=== PATIENT | female | born 1985 | race Two or more races ===

== ENCOUNTER 2023-12-04 08:00 | Outpatient (CLI) | payer OTHER ==
[~2023-12-04] VITALS: Ht 152.4 cm; Wt 72.1 kg
== END 2023-12-04 08:01 | disposition home or self-care (01) ==
LOC: LAB 08:00 → SURH 12-11 07:00 → EDSTATUS 12-11 10:00
PROVIDERS: ATTEND Colon & Rectal Surgery
DX: K57.32 Diverticulitis of large intestine without perforation or abscess without bleeding (principal); K92.1 Melena; Z86.010 Personal history of colon polyps

== ENCOUNTER 2024-01-30 09:40 | Inpatient (IN) | payer OTHER ==
[~2024-01-30] VITALS: Ht 152.4 cm; Wt 69.9 kg
[2024-02-05] MEDS ORDERED: CEFTRIAXONE SODIUM 2,000 MG VIAL ONE (07:06)
[2024-02-05] MEDS ORDERED: METRONIDAZOLE/SODIUM CHLORIDE 500 MG/100 ML PIGGYBACK IV ONE ×2 (07:06→12:05)
[2024-02-05] MEDS ORDERED: BUPIVACAINE HCL/MPF 0.5% 30ML VIAL ONE (07:07)
[2024-02-05] MEDS ORDERED: LIDOCAINE HCL 1%/EPINEPHRINE 20ML VIAL IJ ONE (07:07)
[2024-02-05] MEDS ORDERED: METRONIDAZOLE/SODIUM CHLORIDE 500 MG/100 ML PIGGYBACK IV SCH (11:20)
[2024-02-05] MEDS ORDERED: CIPROFLOXACIN IN 5 % DEXTROSE 400 MG/200 ML PIGGYBAG IV SCH (11:20)
[2024-02-05] MEDS ORDERED: CELECOXIB 200 MG CAPSULE PO SCH ×2 (11:21→21:00)
[2024-02-05] MEDS ORDERED: POLYETHYLENE GLYCOL 3350 17 GM BLIST.PACK PO SCH (11:21)
[2024-02-05] MEDS ORDERED: ACETAMINOPHEN 500 MG GEL..CAP PO SCH (11:21)
[2024-02-05] MEDS ORDERED: GABAPENTIN 300 MG CAPSULE PO SCH (11:21)
[2024-02-05] MEDS ORDERED: LACTULOSE 20 G/30 ML BLIST.PACK PO SCH (11:21)
[2024-02-05] MEDS ORDERED: MORPHINE SULFATE 4 MG/ML CARTRIDGE IV PRN (11:30)
[2024-02-05] MEDS ORDERED: DEXTROSE 50 % IN WATER 0.5 G/ML DISP.SYRIN IV PRN (11:30)
[2024-02-05] MEDS ORDERED: OxyCODONE HCL 5 MG TABLET (ROXICODONE) PO PRN (11:30)
[2024-02-05] MEDS ORDERED: ONDANSETRON HCL 2 MG/ML VIAL IV PRN (11:30)
[2024-02-05] MEDS ORDERED: RINGERS SOLUTION,LACTATED 1,000 ML IV SCH (11:30)
[2024-02-05] MEDS ORDERED: CIPROFLOXACIN IN 5 % DEXTROSE 400 MG/200 ML PIGGYBAG IV ONE (12:05)
[2024-02-05 12:06] LABS: HEMATOCRIT 36.9 % (36.0-45.00); HEMOGLOBIN 12.6 g/dL (12.0-15.00); MEAN CELL VOLUME 86.2 fL (80.00-100.00); MEAN CORPUSCULAR HEMOGLOBIN 29.4 pg (27.00-32.0); MEAN CORPUSCULAR HGB CONC 34.1 g/dl (32.0-36.0); PLATELET COUNT 208 K/uL (150-450); RED BLOOD COUNT 4.28 M/uL (4.00-6.00); RED CELL DISTRIBUTION WIDTH 13.4 % (11.5-14.5)
[2024-02-05] MEDS ORDERED: FAMOTIDINE/PF 20 MG/2 ML VIAL ONE (12:06)
[2024-02-05] MEDS ORDERED: ENALAPRILAT DIHYDRATE 1.25 MG/ML VIAL IV PRN (12:30)
[2024-02-05] MEDS ORDERED: SIMETHICONE 125 MG CAPSULE PO SCH (13:00)
[2024-02-05] MEDS ORDERED: HYOSCYAMINE SULFATE 0.125 MG TAB.SUBL SL SCH (13:00)
[2024-02-05 13:25] LABS: ALBUMIN 3.4 gm/dL (3.4-5.0); CALCIUM 8.4 mg/dL (8.5-10.1); CREATININE SERUM 0.72 mg/dL (0.55-1.02); GFR 89.26; MAGNESIUM 1.6 mg/dL (1.8-2.4); PHOSPHOROUS 3.7 mg/dL (2.5-4.9); POTASSIUM 3.99 mEq/L (3.5-5.1)
[2024-02-05] MEDS ORDERED: FAMOTIDINE/PF 20 MG/2 ML VIAL IV PUSH SCH (21:00)
[2024-02-06 06:19] LABS: HEMATOCRIT 37.2 % (36.0-45.00); MEAN CELL VOLUME 86.2 fL (80.00-100.00); MEAN CORPUSCULAR HGB CONC 34.8 g/dl (32.0-36.0); PLATELET COUNT 231 K/uL (150-450); RED BLOOD COUNT 4.32 M/uL (4.00-6.00)
[2024-02-06 06:56] LABS: ALBUMIN 3.2 gm/dL (3.4-5.0); CALCIUM 9.2 mg/dL (8.5-10.1); CREATININE SERUM 0.68 mg/dL (0.55-1.02); GFR 95.35; POTASSIUM 3.73 mEq/L (3.5-5.1)
[2024-02-06 07:41] LABS: MAGNESIUM 1.3 mg/dL (1.8-2.4)
[2024-02-06] MEDS ORDERED: LACTULOSE 20 G/30 ML BLIST.PACK PO SCH (09:00)
[2024-02-06] MEDS ORDERED: MAGNESIUM SULFATE IN WATER 50 ML IV NR (10:07)
[2024-02-06] MEDS ORDERED: ENOXAPARIN SODIUM 40 MG/0.4 ML SYRINGE SUBCUTANEO SCH (17:00)
[2024-02-07 07:56] LABS: HEMATOCRIT 33.8 % (36.0-45.00); HEMOGLOBIN 11.6 g/dL (12.0-15.00); MEAN CELL VOLUME 87.4 fL (80.00-100.00); MEAN CORPUSCULAR HEMOGLOBIN 30.1 pg (27.00-32.0); MEAN CORPUSCULAR HGB CONC 34.4 g/dl (32.0-36.0); PLATELET COUNT 189 K/uL (150-450); RED BLOOD COUNT 3.87 M/uL (4.00-6.00); RED CELL DISTRIBUTION WIDTH 13.7 % (11.5-14.5)
[2024-02-07 08:43] LABS: CALCIUM 8.6 mg/dL (8.5-10.1); CREATININE SERUM 0.63 mg/dL (0.55-1.02); GFR 104.14; POTASSIUM 4.03 mEq/L (3.5-5.1)
[2024-02-07] MEDS ORDERED: ENOXAPARIN SODIUM 40 MG/0.4 ML SYRINGE SUBCUTANEO SCH (09:00)
[2024-02-07 09:24] LABS: PHOSPHOROUS 1.6 mg/dL (2.5-4.9)
== END 2024-02-07 14:45 | disposition home or self-care (01) | DRG 330 ==
LOC: O/R 02-05 05:10 → SURH 02-05 11:15 → SURG 02-05 11:53 → SURH 02-05 17:30 → SURG 02-07 14:45
PROVIDERS: Internal Medicine Geriatric Medicine; ADMIT Colon & Rectal Surgery; ATTEND Colon & Rectal Surgery
PROC: 0DBP4ZZ Excision of Rectum, Percutaneous Endoscopic Approach (ICD-10-PCS; 2024-02-05)
PROC: 0DJD8ZZ Inspection of Lower Intestinal Tract, Via Natural or Artificial Opening Endoscopic (ICD-10-PCS; 2024-02-05)
PROC: 0DTN4ZZ Resection of Sigmoid Colon, Percutaneous Endoscopic Approach (ICD-10-PCS; principal; 2024-02-05 17:30)
DX: K57.32 Diverticulitis of large intestine without perforation or abscess without bleeding (principal); K92.1 Melena; I10 Essential (primary) hypertension